=== PATIENT | male | born 1960 | race Caucasian/White ===

== ENCOUNTER 2016-06-26 04:03 | Emergency (ER) | payer OTHER ==
[~2016-06-26] VITALS: Ht 182.9 cm; Wt 112.6 kg
[~2016-06-26 04:03] MED LIST: AMLO5TAB2 PO; PHN/100 PO
[2016-06-26 04:08] VITALS: TEMP 36.9; Ht 182.9 cm; Wt 112.6 kg
[2016-06-26] MEDS ORDERED: FENTANYL CITRATE INJ 50 MCG/1 ML 2 ML VIAL ONE (04:16)
[2016-06-26 04:37] VITALS: O2SAT 94
[2016-06-26 04:43] LABS: BASO % 0.5 %; BASO ABS # 0.03 K/uL (0-0.2); COMPLETE YES; EOS % 1.7 %; HEMATOCRIT 45.4 % (42-52); IG% 0.2 %; LYMPH % 40.8 %; LYMPH ABS # 2.61 K/uL (1.2-3.4); MEAN CELL VOLUME 88.2 fL (80-100); MEAN CORPUSCULAR HEMOGLOBIN 30.7 pg (25-34); MEAN CORPUSCULAR HGB CONC 34.8 g/dl (32-36); MEAN PLATELET VOLUME 10.5 fL (7.4-10.4); MONO % 10.3 %; NEUT % 46.5 %; PLATELET COUNT 181 K/uL (130-400); RED BLOOD COUNT 5.15 M/uL (4.7-6.1); WHITE BLOOD COUNT 6.39 K/uL (4.8-10.8)
[2016-06-26 04:54] LABS: POINT OF CARE TROPONIN I 0.01 ng/ml (0-0.045)
[2016-06-26 05:03] VITALS: PULSE 82; O2SAT 94
[2016-06-26 05:03] LABS: ALT/SGPT 42 U/L (12-78); AST/SGOT 19 U/L (15-37); BLOOD UREA NITROGEN 15 mg/dl (7-18); BUN/CREATININE RATIO 20.3 (10-20); CALCIUM 8.7 mg/dl (8.5-10.1); CARBON DIOXIDE 26 mmol/L (21-32); CHLORIDE 106 mmol/L (98-107); CREATININE 0.72 mg/dl (0.60-1.40); GLUCOSE 110 mg/dl (70-99); MAGNESIUM 2.3 mg/dl (1.8-2.4); POTASSIUM 3.9 mmol/L (3.5-5.1); SODIUM 141 mmol/L (136-145)
[2016-06-26 05:14] LABS: ALKALINE PHOSPHATASE 92 U/L (45-117)
--- NOTE | 2016-06-26 05:22 | EMERGENCY ROOM VISIT NOTE ---
History First contact with patient: 04:11 Chief Complaint: TACHYCARDIA Stated Complaint: HEART BEATING FAST,NOT RIGHT History of Present Illness The patient is a 56 year old male who presents to the Emergency Room with complaints of heart pounding and racing with shortness of breath for the past few days steadily getting worse. No history of similar symptoms in the past. Patient denies chest pain, recent illness, fevers, cough, congestion, leg pain or swelling, recent travel, tobacco use, abdominal pain, back pain, headache, numbness, tingling or any other medical complaints. No prior heart disease or blood clots. Review of Systems See HPI for pertinent positives & negatives. A total of 10 systems reviewed and were otherwise negative. Past Medical/Surgical History Medical Problems: (1) Kidney stones (2) No Known Active Medical Problems (3) Right kidney stone (4) Right kidney stone Family History FH: HTN (hypertension) FH: cancer FH: diabetes mellitus FH: heart disease FH: seizures FHx: gallbladder disease FHx: lung disease Social History Smoking Status: Never Smoker Alcohol Use: none Marital Status: Housing Status: lives with family Occupation Status: employed Current/Historical Medications Scheduled Amlodipine Besylate (Norvasc), 5 MG PO DAILY Phenytoin Sodium (Dilantin), 200 MG PO QAM Phenytoin Sodium (Dilantin), 300 MG PO HS Allergies Coded Allergies: No Known Allergies (Verified , 06/26/16) Physical Exam Vital Signs Date Time Temp Pulse Resp B/P Pulse Ox O2 Delivery O2 Flow Rate FiO2 06/26/16 04:37 94 Room Air 06/26/16 04:33 94 Room Air 06/26/16 04:22 86 06/26/16 04:08 36.9 105 20 161/98 94 Room Air Physical Exam VITALS: Vitals are noted on the nurse's note and reviewed by myself. Vital signs mildly tachycardic. GENERAL: Pleasant male, in no acute distress, nondiaphoretic, well-developed well-nourished. SKIN: The skin was without rashes, erythema, edema, or bruising. There is no tenting of the skin. Capillary reflex less than 2 seconds. HEAD: Normocephalic atraumatic. EARS: External auditory canals clear, tympanic membranes pearly thompson without erythema or effusion bilaterally. EYES: Pupils equal round and reactive to light and accommodation. Conjunctivae without injection, sclerae without icterus. Extraocular movements intact. NOSE: Patent, turbinates without inflammation or discharge. MOUTH: Mucous membranes moist. Pharynx without erythema or exudate. Uvula midline. Airway patent. Tongue does not deviate. NECK: Supple without nuchal rigidity. No lymphadenopathy. No thyromegaly. Cervical spine is nontender. No JVD. HEART: Tachycardic Regular rate and rhythm LUNGS: Clear to auscultation bilaterally without wheezes, rales or rhonchi. No dullness to percussion. No retractions or accessory muscle use. ABDOMEN: Positive bowel sounds x 4. Normal tympanic percussion. Soft, nontender, without masses or organomegaly. Vazquez sign negative. No guarding or rebound tenderness. MUSCULOSKELETAL: No muscle atrophy, erythema, or edema noted. NEURO: Patient was alert and oriented to person place and time. Normal sensation to light and sharp touch. No focal neurological deficits. Medical Decision & Procedures Laboratory Results 06/26/16 04:25 Red Blood Count 5.15, Mean Corpuscular Volume 88.2, Mean Corpuscular Hemoglobin 30.7, Mean Corpuscular Hemoglobin Concent 34.8, Mean Platelet Volume 10.5, Neutrophils (%) (Auto) 46.5, Lymphocytes (%) (Auto) 40.8, Monocytes (%) (Auto) 10.3, Eosinophils (%) (Auto) 1.7, Basophils (%) (Auto) 0.5, Neutrophils # (Auto ) 2.97, Lymphocytes # (Auto) 2.61, Monocytes # (Auto) 0.66, Eosinophils # (Auto ) 0.11, Basophils # (Auto) 0.03 06/26/16 04:25 Test 06/26/16 04:25 06/26/16 04:33 White Blood Count 6.39 K/uL (4.8-10.8) Red Blood Count 5.15 M/uL (4.7-6.1) Hemoglobin 15.8 g/dL (14.0-18.0) Hematocrit 45.4 % (42-52) Mean Corpuscular Volume 88.2 fL (80-100) Mean Corpuscular Hemoglobin 30.7 pg (25-34) Mean Corpuscular Hemoglobin Concent 34.8 g/dl (32-36) Platelet Count 181 K/uL (130-400) Mean Platelet Volume 10.5 fL (7.4-10.4) Neutrophils (%) (Auto) 46.5 % Lymphocytes (%) (Auto) 40.8 % Monocytes (%) (Auto) 10.3 % Eosinophils (%) (Auto) 1.7 % Basophils (%) (Auto) 0.5 % Neutrophils # (Auto) 2.97 K/uL (1.4-6.5) Lymphocytes # (Auto) 2.61 K/uL (1.2-3.4) Monocytes # (Auto) 0.66 K/uL (0.11-0.59) Eosinophils # (Auto) 0.11 K/uL (0-0.5) Basophils # (Auto) 0.03 K/uL (0-0.2) RDW Standard Deviation 42.4 fL (36.4-46.3) RDW Coefficient of Variation 13.1 % (11.5-14.5) Immature Granulocyte % (Auto) 0.2 % Immature Granulocyte # (Auto) 0.01 K/uL (0.00-0.02) Anion Gap 9.0 mmol/L (3-11) Est Creatinine Clear Calc Drug Dose 144.9 ml/min Estimated GFR () 119.2 Estimated GFR (Non- 102.8 BUN/Creatinine Ratio 20.3 (10-20) Calcium Level 8.7 mg/dl (8.5-10.1) Magnesium Level 2.3 mg/dl (1.8-2.4) Total Bilirubin 0.2 mg/dl (0.2-1) Direct Bilirubin < 0.1 mg/dl (0-0.2) Aspartate Amino Transf (AST/SGOT) 19 U/L (15-37) Alanine Aminotransferase (ALT/SGPT) 42 U/L (12-78) Alkaline Phosphatase 92 U/L (45-117) Total Protein 7.3 gm/dl (6.4-8.2) Albumin 3.8 gm/dl (3.4-5.0) Thyroid Stimulating Hormone (TSH) 3.360 uIu/ml (0.300-4.500) Phenytoin (Dilantin) Level 5.8 mcg/mL (10-20) Bedside D-Dimer 370 ng/mlFEU (0-450) Bedside Troponin I 0.010 ng/ml (0-0.045) ED Course Prior records/ancillary studies reviewed. Triage Nursing notes reviewed. Additional history obtained from family. The patient's history was concerning for palpitations. Differential diagnosis: Etiologies such as premature contractions, electrolyte abnormality, cardiac dysrhythmia, thyroid dysfunction, pulmonary embolism, infection, gastrointestinal, as well as others were entertained. Physical examination: Benign as above. ER treatment provided: Patient was observed On reassessment the patient felt better. Diagnostic interpretation by me: Cardiac monitoring revealed no dysrhythmia. The electrocardiogram was normal sinus, normal intervals, Q wave in lead 3, no acute ST-T wave changes, rate of 84. Impression normal sinus rhythm with Q wave in lead 3 interpret by myself The labs revealed euthyroid. Negative troponin. Negative d-dimer subtherapeutic Dilantin level Imaging studies: Chest x-ray with no acute consolidation, pneumothorax or free air per my interpretation This appears to be consistent with palpitations. Patient was advised to consult his neurologist for his slightly low Dilantin level. He's had no recent seizures. Patient was neurovascularly and neurologically intact. Unremarkable workup as above. He is advised follow-up family care in a few days or here in the ER sooner for chest pain, difficulty breathing, prolonged palpitations, worsening signs or symptoms or as needed. Patient had no dysrhythmia on monitor or EKG. By the evaluation outlined above emergent etiologies such as electrolyte abnormality, cardiac dysrhythmia, thyroid dysfunction, pulmonary embolism, infection, as well as others were deemed relatively unlikely. Patient was advised outpatient Holter monitor. The pt informed about the findings as listed above. All questions were answered and pleased with the treatment. Return instructions were outlined and the patient was discharged in stable condition. Referral: The patient was referred back to their primary care physician for follow-up in 2 to 3 days for a recheck of the current condition Case reviewed with my attending Medical Decision As above Impression Primary Impression: Heart palpitations Additional Impression: Subtherapeutic serum dilantin level Departure Information Dispostion Home / Self-Care Condition GOOD Referrals Jose D Ward D.O. (PCP) Patient Instructions My [facility] Additional Instructions Your Dilantin level is slightly low. Consult your neurologist. Recommend outpatient Holter monitor with family care doctor. Acetaminophen(Tylenol) may be used for fever or pain. Use 1000mg every six hours as needed. Avoid using more than 3000mg in a 24 hour period. Rest and drink plenty of fluids as tolerated. Continue current medications. Avoid strenuous activities and anything that worsens your symptoms. Resume normal activities once your symptoms resolve. Return to the ER immediately for worsening or persistent palpitations/racing heart, abdominal pain, vomiting, fevers, chest pains, difficulty breathing, worsening of your condition, or as needed. Follow up with your primary physician in 2-3 days for a recheck of your current condition. Problem Qualifiers
[2016-06-26 05:30] VITALS: BP 130/77
--- NOTE | 2016-06-26 08:10 | DIAGNOSTIC IMAGING REPORT ---
CHEST ONE VIEW PORTABLE HISTORY: Atypical CHEST PAIN COMPARISON: None. FINDINGS: The lungs are clear. Cardiac silhouette is normal in size. No pleural effusions. No pneumothorax. Low lung volumes. IMPRESSION: No acute process. Electronically signed by: Jimi Flores M.D. 06/26/2016 8:09 AM Dictated Date/Time: 06/26/2016 8:08 AM
--- NOTE | 2016-06-26 08:11 | DIAGNOSTIC IMAGING REPORT ---
CHEST 2 VIEWS ROUTINE HISTORY: Short of breath. COMPARISON: Chest 06/26/2016. FINDINGS: The lungs are clear. Cardiac silhouette is normal in size. No pleural effusions. No pneumothorax. Low lung volumes. IMPRESSION: No significant change compared to the prior study. No acute process. Electronically signed by: Jimi Flores M.D. 06/26/2016 8:10 AM Dictated Date/Time: 06/26/2016 8:09 AM
== END 2016-06-26 05:38 | disposition home or self-care (01) ==
LOC: C.EDB 04:05
DX: R00.2 Palpitations (principal); Z51.81 Encounter for therapeutic drug level monitoring; Z79.01 Long term (current) use of anticoagulants; Z82.49 Family history of ischemic heart disease and other diseases of the circulatory system; Z83.3 Family history of diabetes mellitus; Z82.0 Family history of epilepsy and other diseases of the nervous system

== ENCOUNTER 2017-01-24 09:18 | Emergency (ER) | payer OTHER ==
[~2017-01-24] VITALS: Ht 182.9 cm; Wt 114.0 kg
[2017-01-24 09:25] VITALS: TEMP 36.9; Ht 182.9 cm; Wt 114.0 kg
--- NOTE | 2017-01-24 10:05 | EMERGENCY ROOM VISIT NOTE ---
History Report prepared by Taylor: Sorin English Under the Supervision of: Dr. John Talavera M.D. First contact with patient: 09:52 Chief Complaint: FALL Stated Complaint: FALL HEADACHE BACK PAIN History of Present Illness The patient is a 57 year old male who presents to the Emergency Room with complaints of a fall that occurred two days ago. At that time, the patent was in [place] at the [employer] when he accidentally slipped on a patch of ice and landed on his back, hitting his head in the process. He denies any loss of consciousness, weakness, or numbness. Afterward, he went back to his hotel room and went to bed. He woke up feeling fine. He did not come to the hospital or call his PCP at that time because he was out of the area and wanted to wait until he came back. He now is experiencing a headache with some back pain as well. He has a past medical history of seizures and a head injury when he was young. He is taking medications for his seizure disorder. He denies any fevers, chills, chest pain, shortness of breath, nausea, vomiting, abdominal pain, or any other abnormal symptoms. He did not take any medications. Source of History: patient Onset: two days ago Position: other (Global) Symptom Intensity: moderate Quality: other (Fall) Timing: constant Associated Symptoms: + headache, + back pain, No LOC, No fevers, No chills, No chest pain, No SOB, No nausea, No vomiting, No abdominal pain Review of Systems See HPI for pertinent positives and negatives. A total of ten systems were reviewed and were otherwise negative. Past Medical & Surgical Medical Problems: (1) Kidney stones (2) No Known Active Medical Problems (3) Right kidney stone (4) Right kidney stone Family History FH: HTN (hypertension) FH: cancer FH: diabetes mellitus FH: heart disease FH: seizures FHx: gallbladder disease FHx: lung disease Social History Smoking Status: Never Smoker Alcohol Use: none Marital Status: Housing Status: lives with family Occupation Status: employed Current/Historical Medications Scheduled Amlodipine Besylate (Norvasc), 5 MG PO DAILY Phenytoin Sodium (Dilantin), 200 MG PO QAM Phenytoin Sodium (Dilantin), 300 MG PO HS Allergies Coded Allergies: No Known Allergies (Verified , 5/13/17) Physical Exam Vital Signs Date Time Temp Pulse Resp B/P (MAP) Pulse Ox O2 Delivery O2 Flow Rate FiO2 01/24/17 10:24 70 16 181/96 96 01/24/17 09:25 36.9 69 16 183/96 94 Room Air Physical Exam GENERAL: Awake, alert, well appearing, no distress HEAD: Normocephalic, atraumatic. No chambers sign. No raccoon eyes. EYES: Normal conjunctiva. PERRL. EARS: External ears normal. Right TM normal. Left TM normal. NOSE: Atraumatic OROPHARYNX: Lips, tongue, and mucosa unremarkable. No erythema or exudate. NECK: Supple. No nuchal rigidity. No tracheal deviation or JVD. No posterior midline tenderness. No step offs noted. RESPIRATORY: CTA bilaterally CARDIAC: Regular rate, normal rhythm. ABDOMEN: Inspection reveals no abnormalities. Soft, non distended. No tenderness to palpation. No hernias. BACK: No midline step offs or tenderness to palpation. Unremarkable. PELVIS: Stable to rock. SKIN: Normal. LYMPH: No adenopathy. MUSCULOSKELETAL: Upper and lower extremities are atraumatic. NEURO: GCS 15. Normal sensorium. No sensory or motor deficits noted. Medical Decision & Procedures ED Course 0952: The patient was evaluated in room A9. A complete history and physical exam was performed. 1100: I reevaluated the patient. Discussed results and discharge instructions: He verbalized understanding and agreement. The patient is ready for discharge. Medical Decision I reviewed the patient's past medical history, medications, and the nursing notes as described above. Differential diagnosis: Etiologies such as fracture, dislocation, intra-abdominal, pneumothorax, intrathoracic , intracranial, neurologic, as well as other traumatic pathologies were entertained. The patient is a 57-year-old gentleman presents to emergency department with mild posterior headache after having a mechanical fall when he slipped on black ice 2 days ago per history of present illness. The patient reports thinking about coming in before but wanted to watch [email or web address] game last night. Arrival the patient is well-appearing, no acute distress, AFVSS. He is neurologically intact. Neck is supple with full range of motion and no tenderness or step- offs. The patient's benign exam greater than 48 hours from his fall is unlikely to have any significant intracranial findings therefore the patient is reassured that he did not require a CT scan today. He expressed his biggest concern was that he could have a seizure due to his head injury. I explained that given his seizure disorder, even a minor concussion alone could provoke the symptoms and that a CAT scan would not necessaryily help in terms of minimizing those risks. However, he should continue to take his seizure medications as prescribed. Patient felt reassured at this time. Plan for PCP follow-up. Findings and plan for follow-up reviewed with patient. Patient agreeable and d/c'd per discharge instructions. Head Trauma GCS Score: 15 Medication Reconcilliation Current Medication List: was personally reviewed by me Blood Pressure Screening Patient's blood pressure: Elevated blood pressure Blood pressure disposition: Elevated BP felt to be situational Impression Primary Impression: Headache Scribe Attestation The scribe's documentation has been prepared under my direction and personally reviewed by me in its entirety. I confirm that the note above accurately reflects all work, treatment, procedures, and medical decision making performed by me. Departure Information Dispostion Home / Self-Care Referrals Jose D Ward D.O. (PCP) Forms HOME CARE DOCUMENTATION FORM, IMPORTANT VISIT INFORMATION Patient Instructions Headache Pain, My [facility] Additional Instructions Please follow up with your primary care physician in the next 1-3 days for re- evaluation. Otherwise, your exam did not show signs of an emergent condition at this time. It does not seem that you suffered a concussion from your fall 2 days ago but symptoms can sometimes be delayed. If experience symptoms such as headache, nausea/vomiting, vision problems avoid sensory stimulus. Acetaminophen for pain as needed. Return to the emergency department for worsening symptoms as described in the accompanying instructions.
[2017-01-24 10:24] VITALS: BP 181/96; PULSE 70; O2SAT 96
== END 2017-01-24 10:26 | disposition home or self-care (01) ==
LOC: C.EDB 09:19 → C.EDA 10:26
DX: R51 Headache (principal); M54.9 Dorsalgia, unspecified; W00.0XXA Fall on same level due to ice and snow, initial encounter; G40.909 Epilepsy, unspecified, not intractable, without status epilepticus; Z82.49 Family history of ischemic heart disease and other diseases of the circulatory system; Z80.9 Family history of malignant neoplasm, unspecified; Z83.3 Family history of diabetes mellitus; Z82.0 Family history of epilepsy and other diseases of the nervous system; Z83.79 Family history of other diseases of the digestive system

== ENCOUNTER 2021-04-11 11:09 | Inpatient (IN) ==
[2021-04-11 11:46] LABS: Basophils # (auto) 0.02 K/uL (0-0.2); Basophils % (auto) 0.3 %; Eosinophils % (auto) 1.3 %; Hematocrit (blood only) 44.8 % (42-52); Hemoglobin 15.1 g/dL (14.0-18.0); Immature Granulocytes # (auto) 0.02 K/uL (0.00-0.02); Immature Granulocytes % (auto) 0.3 %; Lymphocytes # (auto) 1.98 K/uL (1.2-3.4); Lymphocytes % (auto) 25.2 %; Mean Corpuscular Hemoglobin 30.4 pg (25-34); Mean Corpuscular Hgb Conc 33.7 g/dL (32-36); Mean Corpuscular Volume 90.3 fL (80-100); Mean Platelet Volume 10.7 fL (7.4-10.4); Monocytes # (auto) 1.17 K/uL (0.11-0.59); Monocytes % (auto) 14.9 %; Neutrophils # (auto) 4.58 K/uL (1.4-6.5); Platelet Count 179 K/uL (130-400); RDW Coefficient of Variation 13.4 % (11.5-14.5); RDW Standard Deviation 44.4 fL (36.4-46.3); Red Blood Count 4.96 M/uL (4.7-6.1); White Blood Count 7.87 K/uL (4.8-10.8)
--- NOTE | 2021-04-11 12:08 | XRay Report ---
XR chest 1V portable CLINICAL HISTORY: Atypical chest pain. COMPARISON STUDY: Chest radiograph June 26, 2016. FINDINGS: Lung volumes are at the lower limits of normal. Lungs are clear. There is no pneumothorax o r pleural effusion. There is moderate cardiomegaly. Mediastinal contours are normal. There is no evid ence for pulmonary edema. IMPRESSION: No acute cardiopulmonary findings. Cardiomegaly. ACT 112: Negative or not required by law. Electronically signed by: Zac Barnes M.D. 04/11/2021 12:06 PM
[2021-04-11 12:14] LABS: Alanine Aminotransferase 22 U/L (7-52); Albumin Globulin Ratio 1.1 (0.9-2); Albumin Level 3.9 gm/dl (3.4-5.0); Alkaline Phosphatase 72 U/L (34-104); Anion Gap 8 (3-11); Aspartate Aminotransferase 16 U/L (13-39); BUN Creatinine Ratio 21.9 (10-20); Bilirubin,Total 0.6 mg/dl (0.2-1.0); Blood Urea Nitrogen 14 mg/dl (6-23); Calcium 8.6 mg/dl (8.5-10.1); Carbon Dioxide 25 mmol/L (21-32); Chloride 104 mmol/L (98-107); Creatinine Clr Calc Pharmacy 158.7 ml/min; Est GFR (African American) 120.8 ml/min; Est GFR (Non-African American) 104.2 ml/min; Globulin 3.5 gm/dl (2.5-4.0); Glucose 112 mg/dl (70-99(Fasting)); Lipase 10 U/L (11-82); Potassium 4.2 mmol/L (3.5-5.1); Sodium 137 mmol/L (136-145); Total Protein 7.4 gm/dl (6.0-8.3)
[2021-04-11 12:16] LABS: Troponin I < 0.03 ng/ml (0-0.04)
--- NOTE | 2021-04-11 12:43 | Ultrasound Report ---
LEFT LOWER EXTREMITY VENOUS DOPPLER CLINICAL HISTORY: Left lower extremity swelling. COMPARISON STUDY: No previous studies for comparison. TECHNIQUE: Sonography of the deep venous system of the left lower extremity was performed. Compressi on and augmentation were evaluated. FINDINGS: The left common femoral, superficial femoral and popliteal veins were compressible. Augmen tation was normal. Note is made of deep venous thrombus within one of two paired left posterior tibia l veins. IMPRESSION: Deep venous thrombus within one of two paired left posterior tibial veins. No additional deep venous thrombus within the left lower extremity. ACT 112: Negative or not required by law. Electronically signed by: Zac Barnes M.D. 04/11/2021 12:41 PM
[2021-04-11] MEDS ORDERED: OPTIRAY 320 125ml IV ONE (13:19)
--- NOTE | 2021-04-11 13:36 | CT Scan Report ---
CHEST CTA for PULMONARY ARTERIES CT DOSE: 771.12 mGy.cm HISTORY: DVT. Hypoxia. Assess for pulmonary embolus. TECHNIQUE: Multiaxial CT images of the chest were performed following the intravenous administration of contrast to evaluate the pulmonary arteries. Maximal intensity projection images were also obtaine d. A dose lowering technique was utilized adhering to the principles of ALARA. COMPARISON STUDY: Abdomen and pelvis CT 07/01/2013. FINDINGS: Limited views the upper abdomen demonstrate a normal spleen. There is 9 mm hypodense lesion within the right hepatic lobe and a partially visualized 2 cm hypodense lesion within the left hepat ic lobe. These are technically indeterminate but statistically represent cysts. The thyroid gland enh ances normally. Normal esophagus. No pleural or pericardial effusions. No mediastinal or hilar lympha denopathy. The heart is mildly enlarged. Slight flattening of the interventricular septum suggestive of mild right-sided heart strain. The main pulmonary artery is dilated up to 4 cm. This is secondary to multiple bilateral pulmonary emboli involving the majority of the lobar and segmental branches. Em bolus is also also seen within the distal right main pulmonary artery. Mild calcified plaque within t he coronary arteries. No fractures within the visualized osseous structures. The central airways are patent. No pneumothorax. Respiratory motion artifact results in suboptimal evaluation of the lungs. H owever, no focal lung consolidations to suggest a pneumonia or pulmonary infarct. A few left basilar linear densities favor subsegmental atelectasis. IMPRESSION: 1. Extensive bilateral pulmonary emboli resulting in mild right-sided heart strain. 2. No focal lung consolidations to suggest pneumonia or pulmonary infarct. ACT 112: Negative or not required by law. Electronically signed by: Jimi Flores M.D. 04/11/2021 1:35 PM
[2021-04-11] MEDS ORDERED: Heparin IV Adult Wt-Based Standard WITH Bolus Protocol IV STA (13:37)
[2021-04-11] MEDS ORDERED: HEPARIN SOD (PORCINE) 1000 UNIT/ML IV ONE (13:53)
--- NOTE | 2021-04-11 14:12 | History & Physical Report ---
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 - Recommend outpatient colonoscopy screening to r/o underlying malignancy for completeness - denies changes in bowel habits, melana, hematochezia. Recent PSA testing is normal. No hx of smoking or alcohol use. (3) Hypertension: Plan: - Cont amlodipine (4) Seizure: Plan: - hx of seizure disorder and is on dilantin, continue. Last seizure was in 2007 when was PCP attempting to wean pt off medication. - B12 level decreased, continue supplementation DVT PPx: - teds, scds, heparin gtt CODE: Full Dispo: From home, likely to remain in the hospital x 1-2 days History of Present Illness Primary Care Provider: Jose D Ward, This is a 61-year-old male with PMHx of seizure disorder and HTN who presented to his PCPs office earlier today for complaints of left swollen calf with redness and tenderness. Patient notes this has been going on for 1 week and that it was much more tender and swollen yesterday where he had difficulty walking. 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 He denies any known injury or trauma to the area. Pt admits to some weight gain in the past year. He was started on a B12 supplement by the advice of PCP at a physical 10 days ago where he did complain of numbness and tingling in the left 3 toes, but states this numbness has been going on since last November when he had a cataract surgery. His B12 level was checked and noted to be low, so was started on supplementation. He denies any family history or personal history of clotting disorders, cancer or lupus in the past. He has also underwent screening with colonoscopy approximately 4 to 5 years ago and states that it was normal. Recent PSA is normal. Denies hx of tobacco use and does not use alcohol (last drink was at age 19). The office referred him to the ER for ultrasound as they did not have it available to rule out a DVT in the office today. Once here he was found to have a left posterior tibial DVT, CTA was obtained and shows extensive bilateral PE present. He has been started on a heparin drip in the ER. Allergies Allergy/AdvReac Type Severity Reaction Status Date / Time No Known Allergies Allergy Unknown Verified 04/11/21 14:06 Home Medications Medication Instructions Recorded Confirmed Type amlodipine 5 mg tablet 5 mg PO HS 10/23/20 04/11/21 History phenytoin sodium extended 100 mg See Rx Instructions .ROUTE .COMPLEX 10/23/20 04/11/21 History capsule (Dilantin Extended) cyanocobalamin (vitamin B-12) 1,000 mcg PO QAM 04/11/21 04/11/21 History 1,000 mcg tablet (Vitamin B-12) 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19, 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 D/T TRYING TO WEAN OFF SEIZURE MED) Surgical History History of cataract surgery LEFT History of colonoscopy History of tooth extraction Family History Other No family history of adverse response to anesthesia Social History Smoking Status: Never smoker Second Hand Exposure: Yes ( A CHILD); Hx Alcohol Use: No Preferred Language: Tristanian Mirror Maker Required: No Beliefs That Will Affect Care: None Current Living Situation: Family Current Living Situation Comment: WITH SISTER Feels Safe at Home: Yes Assistive Devices: Glasses Review of Systems Review of Systems: Constitutional: No fever, sweats or chills Eyes: No diplopia, no worsening or blurred vision ENT: normal hearing, no trouble swallowing Respiratory: No cough, sputum, dyspnea at rest or on exertion Cardiovascular: No chest pain, tightness or palpitations Abdomen: No pain, nausea, vomiting, diarrhea or constipation Musculoskeletal: As per HPI with left calf pain and swelling, otherwise no joint pain, no right calf pain or swelling Neurologic: No weakness, +numbness/tingling as per HPI, no balance problems Psychiatric: No anxiety or depression Skin: No rash or itch Physical Exam Physical Exam: General: awake, alert, no apparent distress Head: Normocephalic, atraumatic ENT: PERRL, EOMI, no pharyngeal exudate, mucous membranes moist Chest: Clear to auscultation, on room air, no adventitious breath sounds Cardiac: Regular rate and rhythm, no murmur, no JVD, normal peripheral pulses, good capillary refill Abdominal: NABS x 4 quadrants, soft, nondistended, nontender to palpation, no rebound or guarding Extremities: Normal inspection, no peripheral edema or erythema, R calf tender to palpation and swollen compared to the left Psych: Normal mood and affect Neuro: AAO x 3, strength intact bilaterally and rated 5/5, no motor deficits, speech is clear, no peripheral sensory deficits Results & Data Results & Data ([facility]) Vital Signs (Past 12 Hours) Vital Signs Temp Pulse Pulse Resp BP BP Pulse Ox 04/11/21 12:50 79 24 124/78 94 04/11/21 12:00 79 22 141/92 H 91 04/11/21 11:30 80 20 143/91 H 93 04/11/21 11:13 36.3 C L 78 18 152/99 H 93 Laboratory Results 04/11/21 04/11/21 04/11/21 14:28 11:38 11:38 WBC 7.87 RBC 4.96 Hgb 15.1 Hct 44.8 MCV 90.3 MCH 30.4 MCHC 33.7 RDW Std Deviation 44.4 RDW Coeff of Lauro 13.4 Plt Count 179 MPV 10.7 H Immature Gran % (Auto) 0.3 Neut % (Auto) 58.0 Lymph % (Auto) 25.2 [place] % (Auto) 14.9 Eos % (Auto) 1.3 Baso % (Auto) 0.3 Neut # (Auto) 4.58 Lymph # (Auto) 1.98 [place] # (Auto) 1.17 H Eos # (Auto) 0.10 Baso # (Auto) 0.02 Immature Gran # (Auto) 0.02 PT 10.9 INR 1.1 APTT 25.5 PTT Ratio 1.0 Sodium 137 Potassium 4.2 Chloride 104 Carbon Dioxide 25 Anion Gap 8 BUN 14 Creatinine 0.64 Est Cr Clr Drug Dosing 158.7 Est GFR ( Amer) 120.8 Est GFR (Non-Af Amer) 104.2 BUN/Creatinine Ratio 21.9 H Glucose 112 H Calcium 8.6 Total Bilirubin 0.6 AST 16 ALT 22 Alkaline Phosphatase 72 Troponin I < 0.03 Total Protein 7.4 Albumin 3.9 Globulin 3.5 Albumin/Globulin Ratio 1.1 Lipase 10 L Diagnostic Findings Venous Doppler Study 04/11/21 11:29 LEFT LOWER EXTREMITY VENOUS DOPPLER CLINICAL HISTORY: Left lower extremity swelling. COMPARISON STUDY: No previous studies for comparison. TECHNIQUE: Sonography of the deep venous system of the left lower extremity was performed. Compression and augmentation were evaluated. FINDINGS: The left common femoral, superficial femoral and popliteal veins were compressible. Augmentation was normal. Note is made of deep venous thrombus within one of two paired left posterior tibial veins. IMPRESSION: Deep venous thrombus within one of two paired left posterior tibial veins. No additional deep venous thrombus within the left lower extremity. ACT 112: Negative or not required by law. Electronically signed by: Zac Barnes M.D. 04/11/2021 12:41 PM Chest X-Ray 04/11/21 11:30 XR chest 1V portable CLINICAL HISTORY: Atypical chest pain. COMPARISON STUDY: Chest radiograph June 26, 2016. FINDINGS: Lung volumes are at the lower limits of normal. Lungs are clear. There is no pneumothorax or pleural effusion. There is moderate cardiomegaly. Mediastinal contours are normal. There is no evidence for pulmonary edema. IMPRESSION: No acute cardiopulmonary findings. Cardiomegaly. ACT 112: Negative or not required by law. Electronically signed by: Zac Barnes M.D. 04/11/2021 12:06 PM Chest CTA 04/11/21 12:52 CHEST CTA for PULMONARY ARTERIES CT DOSE: 771.12 mGy.cm HISTORY: DVT. Hypoxia. Assess for pulmonary embolus. TECHNIQUE: Multiaxial CT images of the chest were performed following the intravenous administration of contrast to evaluate the pulmonary arteries. Maximal intensity projection images were also obtained. A dose lowering technique was utilized adhering to the principles of ALARA. COMPARISON STUDY: Abdomen and pelvis CT 07/01/2013. FINDINGS: Limited views the upper abdomen demonstrate a normal spleen. There is 9 mm hypodense lesion within the right hepatic lobe and a partially visualized 2 cm hypodense lesion within the left hepatic lobe. These are technically indeterminate but statistically represent cysts. The thyroid gland enhances normally. Normal esophagus. No pleural or pericardial effusions. No mediastinal or hilar lymphadenopathy. The heart is mildly enlarged. Slight flattening of the interventricular septum suggestive of mild right-sided heart strain. The main pulmonary artery is dilated up to 4 cm. This is secondary to multiple bilateral pulmonary emboli involving the majority of the lobar and segmental branches. Embolus is also also seen within the distal right main pulmonary artery. Mild calcified plaque within the coronary arteries. No fractures within the visualized osseous structures. The central airways are patent. No pneumothorax. Respiratory motion artifact results in suboptimal evaluation of the lungs. However, no focal lung consolidations to suggest a pneumonia or pulmonary infarct. A few left basilar linear densities favor subsegmental atelectasis. IMPRESSION: 1. Extensive bilateral pulmonary emboli resulting in mild right-sided heart strain. 2. No focal lung consolidations to suggest pneumonia or pulmonary infarct. ACT 112: Negative or not required by law. Electronically signed by: Jimi Flores M.D. 04/11/2021 1:35 PM ECG Additional Comments: 11-APR-2021 11:36:49 [facility]-EDSTAT ROUTINE RETRIEVAL Normal sinus rhythm Normal ECG When compared with ECG of 26-JUN-2016 04:19, Borderline criteria for Inferior infarct are no longer Present 25mm/s10mm/[id number] 241CID: 10Unconfirmed Vent. rate 78 BPM DC interval 176 ms QRS duration 80 ms QT/QTc 378/430 ms Code Status & VTE Plan Code Status Full code - discussed with pt at bedside Supervising Physician Co-Signing Physician Notes Pt is a 61 y/o M with hx of seizure, Prediabetes, HTN and obesity admitted for b/l PE and LLE DVT. -Pt drives car for work. He denied any weight loss, hx of smoking, FHx of DVT/PE, ETOH abuse, dark or bloody stool. Recent CMP, CBC and PSA were normal. PE: NAD Lungs: CTA, no wheezing or crackles Cards: normal s1/s2, no murmur Abd: ND, NT, soft MSK: mild swelling near the L calf, no erythema, normal appearing R leg Psych: AAOx3, normal affect A/P: b/l PE and LLE DVT: -VSS -due to R heart strain will get echo ---- trop neg -started on heparin gtt -will start PPI daily -can be discharged on DOAC --- immobilization due to driving is the likely risk factor but would need factor V, coagulation work up and colonoscopy as outpt -recent PSA wnl Seizure: -last seizure was 14 years ago -will continue pts home medication Agree with A/P by Karen Malone PA-C
[2021-04-11] MEDS: HEPARIN SODIUM/DEXTROSE 25,000 UNITS/500 ML BAG IV SCH (14:26)
--- NOTE | 2021-04-11 14:31 | Emergency Department Note ---
Impression & Plan Bilateral pulmonary embolism, DVT (deep venous thrombosis) ED Provider Note NAME: KALI BARAJAS AGE: 61 SEX: M : 1960 ARRIVES VIA: Walk-In INFORMANT: Patient ED PROVIDER(S): Chang Pak DO CHIEF COMPLAINT: Left lower extremity pain HPI: Patient is a 61-year-old male who presents ER for left lower extremity pain. This started around 16 when he saw his PCP for it. He was told to start taking been vitamin B-12. He notes is gradually had increased swelling since then. He called his PCP and he told him to come in to the ER. He denies any headache or change in vision. No chest pain or shortness of breath. No nausea vomiting or diarrhea. Yesterday the pain was about a 10 out of 10. Today it has improved. Is about a 4 out of 10. He does not want anything for the pain. It is constant but is worse with movement. It is focal in the left calf. 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 ROS: See above HPI for pertinent positives & negatives. A total of 10 systems reviewed and were otherwise negative. PAST MEDICAL HISTORY:See Below PAST SURGICAL HISTORY:See Below FAMILY HISTORY:See Below SOCIAL HISTORY:See Below HOME MEDICATIONS:See Below ALLERGIES:See Below VITALS:See Below PHYSICAL EXAMINATION: GENERAL: Sitting up in bed, alert, well appearing, well nourished, no distress, non-toxic EYE EXAM: normal conjunctiva. OROPHARYNX: no exudate, no erythema, lips, buccal mucosa, and tongue normal and mucous membranes are moist NECK: supple, no nuchal rigidity, no adenopathy, non-tender LUNGS: Clear to auscultation. Normal chest wall mechanics HEART: no murmurs, S1 normal and S2 normal ABDOMEN: abdomen soft, non-tender, normo-active bowel sounds, no masses, no rebound or guarding. UPPER EXTREMITIES: upper extremities are grossly normal. LOWER EXTREMITIES: No pitting edema. Left calf larger than right DPs 2 out of 4 bilaterally NEURO EXAM: Normal sensorium, cranial nerves II-XII grossly intact, normal speech, no gross weakness of arms, no gross weakness of legs. MEDICAL DECISION MAKING: Patient is a 61-year-old male who presents the ER for left calf pain. Patient was found to have a larger left calf and the right and pulse ox was about 92%. IV was established blood work was obtained. Labs show no significant leukocytosis or anemia. BMP was unremarkable. LFTs bilirubin troponin was negative. Lipase was clean. Duplex shows DVT in left lower extremity. With the low pulse ox CT angio of the chest was performed and showed bilateral PEs with right heart strain. He denies any bleeding risk factors which were discussed with him at bedside in the usual customary fashion. No previous brain bleeds, coughing up blood, vomiting blood, hematuria, dark tarry stools, recent surgery or recent trauma. He was placed on heparin drip and bolus. He was discussed with the hospitalist admitted for further work-up. Triage Nursing notes reviewed. Limited review of prior medical records performed Vital Signs: reviewed and remarkable for no significant abnormalities Differential diagnosis: DVT, musculoskeletal, infection, joint effusion, trauma, lymphedema, idiopathic, CHF, as well as other pathologies. ER treatment provided: See below Diagnostics interpreted by me: ECG: Sinus rhythm rate 78 Normal axis Poor baseline QTC 430 Cardiac Monitoring: An order was placed for continuous cardiac monitoring. The monitor shows a rate of 80 with sinus rhythm. Laboratory studies: As stated above and show below. Imaging studies: CT angio the chest shows bilateral PEs with right heart strain Consultation(s): Discussed with the hospitalist Laurel for further evaluation Procedures: none Critical Care: I have personally spent 32 minutes of critical care time in the direct management of this patient. This includes bedside care, interpretation of diagnostic studies, and testing, discussion with consultants, patient, and family members, and other required patient management activities. This 32 minutes is in excess of all separately billable procedures. 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19, 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 D/T TRYING TO WEAN OFF SEIZURE MED) Surgical History History of cataract surgery LEFT History of colonoscopy History of tooth extraction Family History Other No family history of adverse response to anesthesia Social History Smoking Status: Never smoker Second Hand Exposure: Yes ( A CHILD); Hx Alcohol Use: No Preferred Language: Amharic Manager Leasing Required: No Beliefs That Will Affect Care: None Current Living Situation: Family Current Living Situation Comment: WITH SISTER Feels Safe at Home: Yes Assistive Devices: Glasses Allergies Allergies Allergy/AdvReac Type Severity Reaction Status Date / Time No Known Allergies Allergy Unknown Verified 04/11/21 14:06 Home Meds Home Medications Medication Instructions Recorded Confirmed amlodipine 5 mg tablet 5 mg PO HS 10/23/20 11/12/20 phenytoin sodium extended 100 mg 100 mg PO UD 10/23/20 11/12/20 capsule (Dilantin Extended) Results & Data (ED) Vital Signs Vital Signs - 24 hr 04/11/21 11:13 04/11/21 11:30 04/11/21 12:00 Temperature 36.3 C L Temperature Source Temporal Artery Scan Pulse Rate 78 Pulse Rate [Radial] 80 79 Respiratory Rate 18 20 22 Respiratory Effort / Characteristics Non-Labored Spontaneous Respiratory Depth Normal Respiratory Pattern Regular Blood Pressure 152/99 H Blood Pressure [Right Arm] 143/91 H 141/92 H Blood Pressure Mean 116 Blood Pressure Mean [Right Arm] 108 108 Blood Pressure Position Sitting Blood Pressure Position [Right Arm] Sitting Pulse Oximetry 93 93 91 Oxygen Delivery Method Room Air Room Air Room Air Sepsis Recent Fever Within 48 Hours No Sepsis New/Unexplained Change in Mental Status No Sepsis Action Taken by Nursing No Action Required 04/11/21 12:50 Temperature Temperature Source Pulse Rate Pulse Rate [Radial] 79 Respiratory Rate 24 Respiratory Effort / Characteristics Respiratory Depth Respiratory Pattern Blood Pressure Blood Pressure [Right Arm] 124/78 Blood Pressure Mean Blood Pressure Mean [Right Arm] 93 Blood Pressure Position Blood Pressure Position [Right Arm] Sitting Pulse Oximetry 94 Oxygen Delivery Method Room Air Sepsis Recent Fever Within 48 Hours Sepsis New/Unexplained Change in Mental Status Sepsis Action Taken by Nursing Laboratory Data Result diagrams: 04/11/21 11:38 04/11/21 11:38 Lab Results 04/11/21 04/11/21 Range/Units 11:38 11:38 WBC 7.87 (4.8-10.8) K/uL RBC 4.96 (4.7-6.1) M/uL Hgb 15.1 (14.0-18.0) g/dL Hct 44.8 (42-52) % MCV 90.3 (80-100) fL MCH 30.4 (25-34) pg MCHC 33.7 (32-36) g/dL RDW Std Deviation 44.4 (36.4-46.3) fL RDW Coeff of Lauro 13.4 (11.5-14.5) % Plt Count 179 (130-400) K/uL MPV 10.7 H (7.4-10.4) fL Immature Gran % (Auto) 0.3 % Neut % (Auto) 58.0 % Lymph % (Auto) 25.2 % [place] % (Auto) 14.9 % Eos % (Auto) 1.3 % Baso % (Auto) 0.3 % Neut # (Auto) 4.58 (1.4-6.5) K/uL Lymph # (Auto) 1.98 (1.2-3.4) K/uL [place] # (Auto) 1.17 H (0.11-0.59) K/uL Eos # (Auto) 0.10 (0-0.5) K/uL Baso # (Auto) 0.02 (0-0.2) K/uL Immature Gran # (Auto) 0.02 (0.00-0.02) K/uL Sodium 137 (136-145) mmol/L Potassium 4.2 (3.5-5.1) mmol/L Chloride 104 (98-107) mmol/L Carbon Dioxide 25 (21-32) mmol/L Anion Gap 8 (3-11) BUN 14 (6-23) mg/dl Creatinine 0.64 (0.6-1.4) mg/dl Est Cr Clr Drug Dosing 158.7 ml/min Est GFR ( Amer) 120.8 ml/min Est GFR (Non-Af Amer) 104.2 ml/min BUN/Creatinine Ratio 21.9 H (10-20) Glucose 112 H (70-99(Fasting)) mg/dl Calcium 8.6 (8.5-10.1) mg/dl Total Bilirubin 0.6 (0.2-1.0) mg/dl AST 16 (13-39) U/L ALT 22 (7-52) U/L Alkaline Phosphatase 72 (34-104) U/L Troponin I < 0.03 (0-0.04) ng/ml Total Protein 7.4 (6.0-8.3) gm/dl Albumin 3.9 (3.4-5.0) gm/dl Globulin 3.5 (2.5-4.0) gm/dl Albumin/Globulin Ratio 1.1 (0.9-2) Lipase 10 L (11-82) U/L Administered Medications Heparin Sodium/Dextrose (Heparin Sodium/Dextrose) 25,000 units in 500 mls @ 0.02 mls/hr IV .Q24H [facility]; Protocol Stop: 05/11/21 13:59 Last Admin: 04/11/21 14:26 Dose: 1,700 units/hr, 34 mls/hr Documented by: [id number] Cosigned by: [id number] Discontinued Medications Heparin Sodium (Porcine) (Heparin Sod (Porcine) 1000 Unit/Ml) 1 units IV NOW ONE Stop: 04/11/21 13:54 Last Admin: 04/11/21 14: Dose: 5,000 units Documented by: [id number] Cosigned by: [id number] Ioversol (Optiray 320 125ml) 120 ml IV ONCE ONE Stop: 04/11/21 13:20 Last Admin: 04/11/21 13:22 Dose: 120 ml Documented by: [id number] Imaging Data Radiologist's Impression: Venous Doppler Study 04/11/21 11:29 LEFT LOWER EXTREMITY VENOUS DOPPLER CLINICAL HISTORY: Left lower extremity swelling. COMPARISON STUDY: No previous studies for comparison. TECHNIQUE: Sonography of the deep venous system of the left lower extremity was performed. Compression and augmentation were evaluated. FINDINGS: The left common femoral, superficial femoral and popliteal veins were compressible. Augmentation was normal. Note is made of deep venous thrombus within one of two paired left posterior tibial veins. IMPRESSION: Deep venous thrombus within one of two paired left posterior tibial veins. No additional deep venous thrombus within the left lower extremity. ACT 112: Negative or not required by law. Electronically signed by: Zac Barnes M.D. 04/11/2021 12:41 PM Chest X-Ray 04/11/21 11:30 XR chest 1V portable CLINICAL HISTORY: Atypical chest pain. COMPARISON STUDY: Chest radiograph June 26, 2016. FINDINGS: Lung volumes are at the lower limits of normal. Lungs are clear. There is no pneumothorax or pleural effusion. There is moderate cardiomegaly. Mediastinal contours are normal. There is no evidence for pulmonary edema. IMPRESSION: No acute cardiopulmonary findings. Cardiomegaly. ACT 112: Negative or not required by law. Electronically signed by: Zac Barnes M.D. 04/11/2021 12:06 PM Chest CTA 04/11/21 12:52 CHEST CTA for PULMONARY ARTERIES CT DOSE: 771.12 mGy.cm HISTORY: DVT. Hypoxia. Assess for pulmonary embolus. TECHNIQUE: Multiaxial CT images of the chest were performed following the intravenous administration of contrast to evaluate the pulmonary arteries. Maximal intensity projection images were also obtained. A dose lowering technique was utilized adhering to the principles of ALARA. COMPARISON STUDY: Abdomen and pelvis CT 07/01/2013. FINDINGS: Limited views the upper abdomen demonstrate a normal spleen. There is 9 mm hypodense lesion within the right hepatic lobe and a partially visualized 2 cm hypodense lesion within the left hepatic lobe. These are technically indeterminate but statistically represent cysts. The thyroid gland enhances normally. Normal esophagus. No pleural or pericardial effusions. No mediastinal or hilar lymphadenopathy. The heart is mildly enlarged. Slight flattening of the interventricular septum suggestive of mild right-sided heart strain. The main pulmonary artery is dilated up to 4 cm. This is secondary to multiple bilateral pulmonary emboli involving the majority of the lobar and segmental branches. Embolus is also also seen within the distal right main pulmonary artery. Mild calcified plaque within the coronary arteries. No fractures within the visualized osseous structures. The central airways are patent. No pneumothorax. Respiratory motion artifact results in suboptimal evaluation of the lungs. However, no focal lung consolidations to suggest a pneumonia or pulmonary infarct. A few left basilar linear densities favor subsegmental atelectasis. IMPRESSION: 1. Extensive bilateral pulmonary emboli resulting in mild right-sided heart strain. 2. No focal lung consolidations to suggest pneumonia or pulmonary infarct. ACT 112: Negative or not required by law. Electronically signed by: Jimi Flores M.D. 04/11/2021 1:35 PM Discharge Plan Visit Data Chief Complaint: Swelling/Edema to Extremity Stated Complaint: LEFT LE SWELLING, REFERRED BY ED Provider: Chang Pak Discharge Problem: Bilateral pulmonary embolism, DVT (deep venous thrombosis) Forms Stand Alone Forms: My [facility] Prescriptions Prescriptions: No Action phenytoin sodium extended [Dilantin Extended] 100 mg Capsule 100 mg PO UD RF: 0 amlodipine 5 mg Tablet 5 mg PO HS RF: 0 Referrals Referrals: Navin Chappell MD [Primary Care Provider] -
[2021-04-11 14:47] LABS: INR 1.1 (0.9-1.1); Partial Thromboplastin Time 25.5 Seconds (21.0-31.0); Prothrombin Time 10.9 Seconds (9.0-12.0)
[2021-04-11] MEDS ORDERED: ACETAMINOPHEN 325 MG TAB PO PRN (18:06)
[2021-04-11] MEDS ORDERED: ONDANSETRON INJ 2 MG/ML 2 ML VIAL IV PRN (18:06)
[2021-04-11] MEDS: amLODIPine BESYLATE 5 MG TAB PO SCH (20:43)
[2021-04-11] MEDS: PHENYTOIN SODIUM ER 100 MG CAP PO SCH (20:43)
[2021-04-11 21:26] LABS: Partial Thromboplastin Ratio 1.7
[2021-04-12 03:40] LABS: Hematocrit (blood only) 41.9 % (42-52); Hemoglobin 14.6 g/dL (14.0-18.0); Mean Corpuscular Hemoglobin 31.3 pg (25-34); Mean Corpuscular Hgb Conc 34.8 g/dL (32-36); Mean Corpuscular Volume 89.7 fL (80-100); Mean Platelet Volume 10.8 fL (7.4-10.4); Platelet Count 167 K/uL (130-400); RDW Coefficient of Variation 13.3 % (11.5-14.5); Red Blood Count 4.67 M/uL (4.7-6.1); White Blood Count 7.49 K/uL (4.8-10.8)
[2021-04-12 04:07] LABS: Partial Thromboplastin Ratio 1.8
[2021-04-12 04:09] LABS: Albumin Globulin Ratio 1.2 (0.9-2); Albumin Level 3.6 gm/dl (3.4-5.0); BUN Creatinine Ratio 24.6 (10-20); Bilirubin,Total 0.4 mg/dl (0.2-1.0); Calcium 8.3 mg/dl (8.5-10.1); Creatinine Clr Calc Pharmacy 174.6 ml/min; Est GFR (African American) 126.7 ml/min; Est GFR (Non-African American) 109.3 ml/min; Globulin 3.1 gm/dl (2.5-4.0); Potassium 3.9 mmol/L (3.5-5.1); Total Protein 6.7 gm/dl (6.0-8.3)
[2021-04-12 04:39] LABS: Partial Thromboplastin Time 47.4 Seconds (21.0-31.0)
[2021-04-12] MEDS: HEPARIN SODIUM/DEXTROSE 25,000 UNITS/500 ML BAG IV SCH ×2 (05:19→20:57)
[2021-04-12] MEDS: CYANOCOBALAMIN (B-12) 500 MCG TABLET PO SCH (08:52)
[2021-04-12] MEDS: FAMOTIDINE 20 MG TAB PO SCH (08:52)
[2021-04-12] MEDS: PHENYTOIN SODIUM ER 100 MG CAP PO SCH ×2 (08:53→20:53)
[2021-04-12] MEDS ORDERED: WARFARIN SOD 5 MG TAB PO ONE (10:56)
--- NOTE | 2021-04-12 12:35 | Electrocardiogram Report ---
Test Reason : Blood Pressure : / mmHG Vent. Rate : 078 BPM Atrial Rate : 078 BPM P-R Int : 176 ms QRS Dur : 080 ms QT Int : 378 ms P-R-T Axes : 008 -09 052 degrees QTc Int : 430 ms Normal sinus rhythm Normal ECG When compared with ECG of 26-JUN-2016 04:19, Borderline criteria for Inferior infarct are no longer Present Confirmed by Rodrigo Romero ([id number]) on 04/12/2021 12:35:21 PM Referred By: Confirmed By:Rodrigo Romero
--- NOTE | 2021-04-12 13:17 | Hospitalist Progress Note ---
Date of Service April 12, 2021 Assessment & Plan (1) Bilateral pulmonary embolism: (2) Left leg DVT: Plan: Acute Left DVT Acute B/L PE --CTA: Extensive bilateral pulmonary emboli resulting in mild right-sided heart strain. No focal lung consolidations to suggest pneumonia or pulmonary infarct. --Venous Doppler:Deep venous thrombus within one of two paired left posterior tibial veins. No additional deep venous thrombus within the left lower extremit y. --ECHO: Left ventricle is normal in size. Moderate concentric LVH. Left ventricle wall motion is normal. EF 60 to 65%. Grade 1 diastolic dysfunction. Right ventricle is normal size and function. --Needs hypercoagulable work-up as outpatient Continue IV heparin for now Plan to transition to DOAC as able Given a dose of Warfarin today (3) Hypertension: Plan: Continue amlodipine (4) Seizure: Plan: H/O seizure disorder Last seizure was in 2007 when was PCP attempting to wean pt off medication. Continue phenytoin Vit B12 deficiency Continue supplementation DVT PPx: IV Heparin CODE STATUS: Full Code Disposition Likely discharge home Admission and Anticipated Discharge Date Admission Date: April 11, 2021 Subjective Examined at bedside Left leg swelling, pain much improved Currently on IV heparin Denies any bleeding issues Also denies any chest pain, shortness of breath, dizziness, nausea, abdominal pain Offers no other complaints Review of Systems Review of Systems: All systems reviewed & are unremarkable except as noted in Subjective Physical Exam Physical Exam: Physical Exam: Vitals signs as noted above General Appearance:Obese, no apparent distress Head: normocephalic, Atraumatic Eyes: normal inspection, EOMI Neck: supple, Trachea midline Respiratory/Chest: Normal breath sounds, CTA, No accessory muscle use Cardiovascular: S1, S2, No murmur Abdomen/GI:Soft, Non tender, Bowel sounds present Extremities/Musculoskeletal:normal inspection, LLE edema Neurologic/Psych:AAOX3, grossly no focal neurological deficits Skin: normal color, warm Results & Data Results & Data ([facility]) Vital Signs (Past 12 Hours) Vital Signs Temp Pulse Pulse Resp BP BP Pulse Ox 04/12/21 11:52 36.7 C 83 19 135/83 97 04/12/21 10:50 74 04/12/21 08:00 37.2 C 83 14 146/90 H 92 04/12/21 03:00 37.3 C 80 18 152/70 H 94 Laboratory Results Short CBC 04/12/21 Range/Units 03:28 WBC 7.49 (4.8-10.8) K/uL Hgb 14.6 (14.0-18.0) g/dL Hct 41.9 L (42-52) % Plt Count 167 (130-400) K/uL BMP 04/12/21 03:28 Sodium 136 Potassium 3.9 Chloride 105 Carbon Dioxide 24 BUN 14 Creatinine 0.57 L Glucose 112 H Calcium 8.3 L Liver Function 04/12/21 Range/Units 03:28 Total Bilirubin 0.4 (0.2-1.0) mg/dl AST 17 (13-39) U/L ALT 22 (7-52) U/L Alkaline Phosphatase 66 (34-104) U/L Albumin 3.6 (3.4-5.0) gm/dl
[2021-04-12] MEDS: amLODIPine BESYLATE 5 MG TAB PO SCH (20:53)
[2021-04-13 06:07] LABS: Hematocrit (blood only) 41.7 % (42-52); Hemoglobin 14.5 g/dL (14.0-18.0); Mean Corpuscular Hgb Conc 34.8 g/dL (32-36); Mean Corpuscular Volume 89.3 fL (80-100); Mean Platelet Volume 10.9 fL (7.4-10.4); Platelet Count 180 K/uL (130-400); RDW Coefficient of Variation 13.2 % (11.5-14.5); RDW Standard Deviation 43.2 fL (36.4-46.3); Red Blood Count 4.67 M/uL (4.7-6.1); White Blood Count 6.45 K/uL (4.8-10.8)
[2021-04-13 06:35] LABS: Calcium 8.3 mg/dl (8.5-10.1); Creatinine Clr Calc Pharmacy 168.7 ml/min; Est GFR (African American) 124.9 ml/min; Est GFR (Non-African American) 107.7 ml/min; Potassium 3.9 mmol/L (3.5-5.1)
[2021-04-13 06:53] LABS: INR 1.1 (0.9-1.1); Partial Thromboplastin Ratio 1.8; Prothrombin Time 11.5 Seconds (9.0-12.0)
[2021-04-13 07:00] LABS: Partial Thromboplastin Time 48.3 Seconds (21.0-31.0)
[2021-04-13] MEDS: CYANOCOBALAMIN (B-12) 500 MCG TABLET PO SCH (09:04)
[2021-04-13] MEDS: PHENYTOIN SODIUM ER 100 MG CAP PO SCH (09:04)
[2021-04-13] MEDS: FAMOTIDINE 20 MG TAB PO SCH (09:05)
[2021-04-13] MEDS: HEPARIN SODIUM/DEXTROSE 25,000 UNITS/500 ML BAG IV SCH (10:06)
[2021-04-13] MEDS ORDERED: APIXABAN 5 MG TABLET PO SCH (11:00)
--- NOTE | 2021-04-13 12:44 | Hospitalist Progress Note ---
Date of Service April 13, 2021 Assessment & Plan (1) Bilateral pulmonary embolism: (2) Left leg DVT: Plan: Acute Left DVT Acute B/L PE --CTA: Extensive bilateral pulmonary emboli resulting in mild right-sided heart strain. No focal lung consolidations to suggest pneumonia or pulmonary infarct. --Venous Doppler:Deep venous thrombus within one of two paired left posterior tibial veins. No additional deep venous thrombus within the left lower extremit y. --ECHO: Left ventricle is normal in size. Moderate concentric LVH. Left ventricle wall motion is normal. EF 60 to 65%. Grade 1 diastolic dysfunction. Right ventricle is normal size and function. --Needs hypercoagulable work-up as outpatient Continue IV heparin >>>Transition to Apixaban Saturating well on room air (3) Hypertension: Plan: Continue amlodipine (4) Seizure: Plan: H/O seizure disorder Last seizure was in 2007 when was PCP attempting to wean pt off medication. Continue phenytoin Vit B12 deficiency Continue supplementation DVT PPx: Apixaban CODE STATUS: Full Code Disposition Plan to discharge home today Admission and Anticipated Discharge Date Admission Date: April 11, 2021 Subjective Patient is seen and examined at bedside Left leg swelling, pain resolved No new complaints on IV heparin Denies any bleeding issues, chest pain, shortness of breath, dizziness, nausea, abdominal pain Review of Systems Review of Systems: All systems reviewed & are unremarkable except as noted in Subjective Physical Exam Physical Exam: Physical Exam: Vitals signs as noted above General Appearance:Obese, no apparent distress Head: normocephalic, Atraumatic Eyes: normal inspection, EOMI Neck: supple, Trachea midline Respiratory/Chest: Normal breath sounds, CTA, No accessory muscle use Cardiovascular: S1, S2, No murmur Abdomen/GI:Soft, Non tender, Bowel sounds present Extremities/Musculoskeletal:normal inspection, LLE edema improved Neurologic/Psych:AAOX3, grossly no focal neurological deficits Skin: normal color, warm Results & Data Results & Data ([facility]) Vital Signs (Past 12 Hours) Vital Signs Temp Pulse Resp BP Pulse Ox 04/13/21 12:29 36.6 C 82 18 142/73 H 94 04/13/21 07:51 36.8 C 77 18 146/80 H 93 04/13/21 04:04 36.9 C 83 18 142/89 H 94 Laboratory Results Short CBC 04/13/21 Range/Units 05:53 WBC 6.45 (4.8-10.8) K/uL Hgb 14.5 (14.0-18.0) g/dL Hct 41.7 L (42-52) % Plt Count 180 (130-400) K/uL [facility] 04/13/21 05:53 Sodium 137 Potassium 3.9 Chloride 106 Carbon Dioxide 24 BUN 13 Creatinine 0.59 L Glucose 99 Calcium 8.3 L
--- NOTE | 2021-04-13 12:50 | Discharge Summary ---
Date of Service April 13, 2021 Admission HPI Per Admitting Provider This is a 61-year-old male with PMHx of seizure disorder and HTN who presented to his PCPs office earlier today for complaints of left swollen calf with redness and tenderness. Patient notes this has been going on for 1 week and that it was much more tender and swollen yesterday where he had difficulty walking. 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 He denies any known injury or trauma to the area. Pt admits to some weight gain in the past year. He was started on a B12 supplement by the advice of PCP at a physical 10 days ago where he did complain of numbness and tingling in the left 3 toes, but states this numbness has been going on since last November when he had a cataract surgery. His B12 level was checked and noted to be low, so was started on supplementation. He denies any family history or personal history of clotting disorders, cancer or lupus in the past. He has also underwent screening with colonoscopy approximately 4 to 5 years ago and states that it was normal. Recent PSA is normal. Denies hx of tobacco use and does not use alcohol (last drink was at age 19). The office referred him to the ER for ultrasound as they did not have it available to rule out a DVT in the office today. Once here he was found to have a left posterior tibial DVT, CTA was obtained and shows extensive bilateral PE present. He has been started on a heparin drip in the ER. Admission Exam Per Admitting Provider Physical Exam Physical Exam: General: awake, alert, no apparent distress Head: Normocephalic, atraumatic ENT: PERRL, EOMI, no pharyngeal exudate, mucous membranes moist Chest: Clear to auscultation, on room air, no adventitious breath sounds Cardiac: Regular rate and rhythm, no murmur, no JVD, normal peripheral pulses, good capillary refill Abdominal: NABS x 4 quadrants, soft, nondistended, nontender to palpation, no rebound or guarding Extremities: Normal inspection, no peripheral edema or erythema, R calf tender to palpation and swollen compared to the left Psych: Normal mood and affect Neuro: AAO x 3, strength intact bilaterally and rated 5/5, no motor deficits, speech is clear, no peripheral sensory deficits Principal Diagnosis Acute left lower extremity deep vein thrombosis Acute bilateral pulmonary embolism Discharge Data Allergies Allergy/AdvReac Type Severity Reaction Status Date / Time No Known Allergies Allergy Unknown Verified 04/11/21 14:06 Consultations 04/11/21 13:41 ED Decision to Admit Stat Ordered Studies 04/11/21 11:29 US venous doppler LE LT Stat 04/11/21 12:52 CT angio chest PE protocol Stat Hospital Course (1) Bilateral pulmonary embolism: (2) Left leg DVT: Acute Left DVT Acute B/L PE --CTA: Extensive bilateral pulmonary emboli resulting in mild right-sided heart strain. No focal lung consolidations to suggest pneumonia or pulmonary infarct. --Venous Doppler:Deep venous thrombus within one of two paired left posterior tibial veins. No additional deep venous thrombus within the left lower extremity. --ECHO: Left ventricle is normal in size. Moderate concentric LVH. Left ventricle wall motion is normal. EF 60 to 65%. Grade 1 diastolic dysfunction. Right ventricle is normal size and function. --Needs hypercoagulable work-up as outpatient Continue IV heparin >>>Transition to Apixaban Saturating well on room air (3) Hypertension: Continue amlodipine (4) Seizure: H/O seizure disorder Last seizure was in 2007 when was PCP attempting to wean pt off medication. Continue phenytoin Vit B12 deficiency Continue supplementation DVT PPx: Apixaban CODE STATUS: Full Code Disposition Plan to discharge home today Total Time Total Time Spent Total Time Spent (In Minutes): 44 minutes Discharge Plan Discharge Items Patient Disposition: Home - Self-Care Reason For Visit: BILATERAL PE, DVT Discharge Diagnosis: Acute left lower extremity deep vein thrombosis Acute bilateral pulmonary embolism Activity: Per Instructions section Exercise/Sports: Wait until after follow-up appointment Non-emergency contact: Primary Care Provider Call non-emergency contact if: you have any medication questions, your symptoms worsen, your pain is concerning for you and you have a fever Follow-up/Referrals: Navin Chappell MD [Primary Care Provider] - (Date & Time 04/17/2021 11:00 AM Provider Barbara Milian MD Department General Internal Medicine [facility] ) Diet: Heart Healthy Addtl Attending Provider Instructions: Follow-up with your primary care physician on 04/17/2021 11:00 AM --Start taking apixaban (Eliquis) 10 mg twice a day for 1 week and then transition to 5 mg twice a day. Duration of apixaban to be determined by of primary care physician. --Discuss with your neurologist as recommended for possible need for adjustment of your medication--phenytoin while on Apixaban. --- Get blood test (hypercoagulable work-up) as outpatient to further determine the cause for clotting Seek immediate medical attention if your symptoms reoccur or worsen Please take all medications as instructed on discharge list below. Please call if you have any questions or problems. You can reach a [facility] hospitalist on duty at [facility] 24 hours a day by calling [phone] Pending Studies at Discharge: No Stand-Alone Forms: My [facility], Smoking Cessation Medications and DC Order Prescriptions: New Eliquis 5 mg (74 tabs) tablets,dose pack 5 mg PO BID Qty: 74 RF: 1 Continued phenytoin sodium extended [Dilantin Extended] 100 mg Capsule See Rx Instructions .ROUTE .COMPLEX RF: 0 amlodipine 5 mg Tablet 5 mg PO HS RF: 0 cyanocobalamin (vitamin B-12) [Vitamin B-12] 1,000 mcg Tablet 1,000 mcg PO QAM RF: 0 Discharge Orders: Discharge Order (Routine); Ordered 04/13/21 Ordered By: Henry Gray Admission Data Admit Date/Time: 04/11/21 14:43 Attending Provider: Henry Gray Admit Provider: Mohit Barbosa Primary Care Provider: Navin Chappell Other Providers: Farrukh Munson
== END 2021-04-13 13:38 | disposition home or self-care (01) | DRG 299 ==
LOC: ED 11:09 → 2E 14:43 → SUATTDRO 14:43 → 2E 17:25